=== PATIENT | female | born 1975 | race Caucasian/White ===

== ENCOUNTER 2021-01-28 17:27 | Emergency (ER) | payer OTHER, SELFPAY ==
[2021-01-28 18:18] VITALS: BP 125/60; PULSE 87; RESP 18; TEMP 36.4; O2SAT 100
--- NOTE | 2021-01-28 18:46 | ED.FEMALEGU ---
HPI - Female Genitourinary General Chief complaint: Urogenital-Female Stated complaint: low back pain,frequent urination Source: patient and RN notes reviewed Limitations: no limitations History of Present Illness HPI Narrative: The patient, on minimal meds, presents with urinary symptoms. Patient states she has a 1/2-week recurrence of typical urinary frequency, urgency and dysuria?like prior UTIs several years ago. No fever, low back pain, hematuria, abdominal pain vaginal discharge-she declines STD testing. Symptoms are mild, most most with micturition. Related Data Home Medications Medication Instructions Recorded Confirmed levothyroxine 88 mcg PO DAILY 01/28/21 01/28/21 liothyronine 5 mcg PO DAILY 01/28/21 01/28/21 Allergies Allergy/AdvReac Type Severity Reaction Status Date / Time No Known Allergies Allergy Verified 01/28/21 18:26 Review of Systems Review of Systems: General/Constitutional: No weight loss,fever Eyes: N0: Redness,discharge Ears/Nose/Throat: No: Epistaxis,ear discharge Respiratory: Denies: Hemoptysis Gastrointestinal: No Vomiting, Bleeding-rectal Skin: No Lumps, eruption Neurologic: No Focal Weakness,Sz Hematologic: Denies: Petechiae/Purpura Psychiatric: No: Suicida ideationl All Other Systems: Reviewed and Negative PMFSH Comments At time of signature, agree with nursing past medical, surgical, social and family history. There is no relevant family history pertinent to the presenting complaint Exam Narrative: General Appearance: Well appearing, Conjunctiva clear Mouth/Throat: Normal appearing, Normal lips, Supple Respiratory: Airway patent, No respiratory distress Abdomen: Soft, Non-tender, No massess, No organomegaly (no rebound/ surgical signs), Hyperactive bowel sounds Musculoskeletal: Full ROM Skin: Warm, Dry Neurological: A&O x3, Normal affect Course Vital Signs Vital signs: Vital Signs Temperature 97.5 F L 01/28/21 18:18 Pulse Rate 87 01/28/21 18:18 Respiratory Rate 18 01/28/21 18:18 Blood Pressure 125/60 01/28/21 18:18 Pulse Oximetry 100 01/28/21 18:18 Temperature 97.5 F L 01/28/21 18:18 Pulse Rate 87 01/28/21 18:18 Respiratory Rate 18 01/28/21 18:18 Blood Pressure 125/60 01/28/21 18:18 Pulse Oximetry 100 01/28/21 18:18 MDM - Female Genitourinary Lab Data Labs: Urine Glucose Negative Reference Range: Negative Urine Bilirubin Negative Reference Range: Negative Urine Ketone Trace Reference Range: Negative Urine Specific Roslyn 1.025 Reference Range:1.001-1.035 Urine Blood Negative Reference Range: Negative * * Urine pH 5.5 Reference Range: 5.0-9.0 Urine Protein Negative Reference Range: Negative Urine Urobilinogen 0.2 Reference Range: 0.2-1.0 Urine Nitrate Negative Reference Range: Negative Urine Leukocyte Negative Reference Range: Negative Urine Color Yellow Reference Range: Yellow Urine Characteristics Clear Discharge Plan Discharge Clinical Impression: Urinary tract infection Qualifiers: Urinary tract infection type: acute cystitis Hematuria pre
== END 2021-01-28 18:54 | disposition home or self-care (01) ==
PROVIDERS: Emergency Provider Emergency Medicine; PCP Family Medicine
DX: N30.00 Acute cystitis without hematuria (principal)
CPT/HCPCS: 81003; 87086; 87088; 99213; G0463

== ENCOUNTER 2024-05-23 17:47 | Emergency (ER) | payer OTHER, SELFPAY ==
--- OUTSIDE RECORDS SUMMARY | 2024-05-23 17:49 | XMS_ITS | Encounter Summary ---
Author Organization [facility] Address [address] [place] [address] Care Team Providers Care Seed Production Field Supervisor Name Role Phone Shauna Brock MD Primary Care Provider [phone] Best Griffiths MD Unavailable [phone] Renuka Bishop MD Primary Care Provider [phone] Encounter Details Date Type Department Care Team (Late st Contact Info) Description 05/14/2019 MyCQellot Message Enc [facility] Family Medicine - [place] [address], [address] [place] [address] [place] [address] [place] [address] Question Social History Tobacco Use Types Packs/Day Years Used Date Smoking Tobacco: Never Smokeless Tobacco: Never Alcohol Use Standard Drinks/Week Comments No 0 (1 standard drink = 0.6 oz pur e alcohol) PHQ-2 Answer Date Recorded PHQ-2 Score 0 05/27/2018 Comments No Sex and Gender Information Value Date Recorded Sex Assigned at Not on file Legal Sex Female 7:05 PM CDT Gender Identity Not on file Sexual Orientation Not on file Occupation Industry Job Start Date Job End Date Not on file Not on file Not on file Not on file documented as of this encounter Functional Status * RETIRED Are you deaf or do you have serious difficulty hearing Answer Date of Assessment Author Status No 10/27/2017 9:36 AM CDT Activ e * RETIRED Are you blind or do you have serious difficulty seeing, even when wearing glasses? Answer Date of Assessment Author Status No 10/27/2017 9:36 AM CDT Activ e * Do you have serious difficulty walking or climbing stairs? Answer Date of Assessment Author Status No 10/27/2017 9:36 AM CDT [facility] Active * Do you have difficulty dressing or bathing? Answer Date of Assessment Author Status No 10/27/2017 9:36 AM CDT [facility]osp[facility] R N Active * Because of a physical, mental, or emotional condition, do you have difficulty doing errands alone such as visiting a doctor's office or shopping? Answer Date of Assessment Author Status No 10/27/2017 9:36 AM CDT [facility] N Active documented as of this encounter Mental Status * Because of a physical, mental, or emotional condition, do you have serious difficulty concentrating, remembering, or making decisions? Answer Entry Date Author Status No 10/27/2017 9:36 AM CDT [facility] N Active documented in this encounter Plan of Treatment Upcoming Encounters Date Type Department Care Team (Late st Contact Info) Description 07/30/2024 7:00 AM CDT Office Visit [facility] Family Medicine - [place] [address] [place] [phone] Renuka Bishop MD [address] [place] [address] 01/17/2025 10:45 AM THIRD MILLER Office Visit [facility], [address] [place], [place] [address] Morena Correa PA-C [facility] [address] [place], [place] [id number] Lorenza Hernandez MD [facility]. [address] [place], [place] [address] 02/21/2025 9:00 AM THIRD MILLER Office Visit [facility], [address] [place] [address] Anamaria Yu PA-C [address] [facility], [address] [place] [address] documented as of this encounter Visit Diagnoses Not on filedocumented in this encounter Care Teams Seed Production Field Supervisor Relationship Specialty Start Date End Date Shauna Brock MD PCP - General 03/30/16 08/28/22 Renuka Bishop MD [address] [place] [address] PCP - General FAMILY PRACTICE 08/29/22 Best Griffiths MD [facility]. [address] [place] [address] [place] It Portfolio Manager INTERVENTIONAL CARDIOLOGY 11/14/17 documented as of this encounter
--- OUTSIDE RECORDS SUMMARY | 2024-05-23 17:49 | XMS_ITS | Encounter Summary ---
Author Organization [facility] Address Formerly [facility] [place] [address] Care Team Providers Care Didactic Instructor Name Role Phone Shauna Brock MD Primary Care Provider [phone] Best Griffiths MD Unavailable [phone] Renuka Bishop MD Primary Care Provider [phone] Encounter Details Date Type Department Care Team (Late st Contact Info) Description 03/12/2019 MyChart Message Enc [facility] Family Medicine - [place] [address], [address] [place] [address] [place] [address] [place] [address] RE: Medication Questions Social History Tobacco Use Types Packs/Day Years [...] [facility] Family Medicine - [place] [address] [place] [phone] Renuka Bishop MD [address] [place] [address] 01/17/2025 10:45 AM AERONAUTICAL PRODUCTS SALES ENGINEER Office Visit [facility], [facility] [address] [place], [place] [address] Morena Correa PA-C [facility] [address] [place], [place] [address] Lorenza Hernandez MD [facility]. [address] [place], [place] [address] 02/21/2025 9:00 AM AERONAUTICAL PRODUCTS SALES ENGINEER Office Visit [facility], [address] [place], [place] [id number] Anamaria Yu PA-C [address] [facility], [address] [place], [place] [address] documented as of this encounter Visit Diagnoses Not on filedocumented in this encounter Care Teams Didactic Instructor Relationship Specialty Start Date End Date Shauna Brock MD PCP - General 03/30/16 08/28/22 Renuka Bishop MD [address] [place] [address] PCP - General FAMILY PRACTICE 08/29/22 Best Griffiths MD Three [facility]. [address] [place] [address] [place] Mailing Section Clerk INTERVENTIONAL CARDIOLOGY 11/14/17 documented as of this encounter
--- OUTSIDE RECORDS SUMMARY | 2024-05-23 17:49 | XMS_ITS | Encounter Summary ---
Author Organization [facility] Address [facility] [place] [address] Care Team Providers Care Truck Caterer Name Role Phone Shauna Brock MD Primary Care Provider [phone] Best Griffiths MD Unavailable [phone] Renuka Bishop MD Primary Care Provider [phone] Encounter Details Date Type Department Care Team (Late st Contact Info) Description 02/18/2022 [employer] Message Enc [facility] Family Medicine - [place] [address], [address] [place] [address] Adzuna, [facility] Provider Refill request Social History Tobacco Use Types Packs/Day Years Used Date Smoking Tobacco: Never Smokeless Tobacco: Never Comments:NA Alcohol Use Standard Drinks/Week Comments No 0 (1 standard drink = 0.6 oz pur e alcohol) PHQ-2 Answer Date Recorded PHQ-2 Score - If the patient scores above 3, please move on to questions 3-9 0 05/28/2021 Comments No Sex and Gender Information Value [...] Author Status No 10/27/2017 9:36 AM CDT [facility] Active * Because of a physical, mental, or emotional condition, do you have difficulty doing errands alone such as visiting a doctor's office or shopping? Answer Date of Assessment Author Status No 10/27/2017 9:36 AM CDT [facility] Active documented as of this encounter Mental [...] Description 07/30/2024 7:00 AM CDT Office Visit [facility] Family Medicine [facility] [address] [place] [phone] Renuka Bishop MD [address] [place] [address] 01/17/2025 10:45 AM ONYX CHIP TERRAZZO WORKER Office Visit [facility] [address] [place], [place] [address] Morena Correa PA-C [facility] [address] [place], [place] [address] Lorenza Hernandez MD [facility]. [facility] [address] [place] [address] 02/21/2025 9:00 AM ONYX CHIP TERRAZZO WORKER Office Visit [facility], [address] [place] [address] Anamaria Yu PA-C [address] [facility], [address] [place] [address] documented as of this encounter Visit Diagnoses Not on filedocumented in this encounter Additional Health Concerns Assessment Noted Time PHQ-9 Depression Total Score: 0 05/29/19 22 12:27 PM CDT documented as of this encounter Care Teams Truck Caterer Relationship Specialty Start Date End Date Shauna Brock MD PCP - General 03/30/16 08/28/22 Renuka Bishop MD [address] [place] [address] PCP - General FAMILY PRACTICE 08/29/22 Best Griffiths MD Three [facility]. [address] [place] [address] [place] Online Marketing Coordinator INTERVENTIONAL CARDIOLOGY 11/14/17 documented as of this encounter
--- OUTSIDE RECORDS SUMMARY | 2024-05-23 17:49 | XMS_ITS | Clinical Summary ---
Author Organization [facility] Address [address] [place] [address] Care Team Providers Care Noise Tester Name Role Phone Best Griffiths MD Unavailable [phone] Renuka Bishop MD Primary Care Provider [phone] Allergies No known active allergies Medications levonorgestrel (MIRENA) 20 MCG/24HR IUD 1 Intra Uterine Device (20 mcg total) by Intrauterine route once. Active cetirizine 10 MG tablet Take 1 tablet (10 mg total) by mouth daily. Active multivitamin tablet Take 1 tablet by mouth daily. Active vitamin D3 (CHOLECALCIFEROL) 125 mcg Tab Take 2 tablets (10,000 Units total) by mouth daily. 06/21/19 19 Active liothyronine 5 MCG Tab 06/11/19 21 Active nitroglycerin (NITROSTAT) 0.[address] 1 tablet (0.4 mg total) under the tongue every 5 (five) minutes as needed for Chest Pain. 25 tablet 1 09/30/19 22 Active levothyroxine (SYNTHROID) 88 MCG tabletIndications:Hy pothyroidism, unspecified type TAKE 1 TABLET(88 MCG) BY MOUTH EVERY MORNING 30 tablet 02/19/20 22 Active metoprolol tartrate (LOPRESSOR) 50 MG tabletIndications:PS VT (paroxysmal supraventricular tachycardia) (HHS/HCC) TAKE 1 TABLET (50 MG) DAILY NEEDED . 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 Pain and swelling of right wrist 11/02/2017 Spontaneous dissection of coronary artery 2017 NSTEMI (non-ST elevation [place] cardial infarction) ([facility]) 10/25/2017 NSTEMI (non-ST elevated myoc ardial infarction) ([facility]) 10/25/2017 Elevated TSH 05/28/2015 Bacterial vaginosis 04/21/2015 Abnormal weight gain 04/14/2015 Changing skin lesion 04/14/2015 Immunizations Name Administration Dates Next Due Fluzone (IIV3, Trivalent, 0.5 ML Prefilled Syrin ge) 01/26/2024 Fluzone 6 Months+ Quad (0.5 mL Prefilled Syringe ) 01/22/2020 PFIZER COVID-19 (12+) MRNA, LNP-S, PF, JACE-SUCROSE, 30 MCG/0.3 ML (COMIRNATY) 01/26/2024 Tdap (Adacel) 02/12/2020 Family History Medical History Relation Comments skin cancer Brother 1 Cancer Brother 2 Melanoma - passe d 12/18/2017 Retardation/Learning Difficulties Daughter Arthritis Mother Hypertension Mother Relation Status Comments Brother 1 Brother 2 Daughter Father Alive Mother Alive Social History Tobacco Use Types Packs/Day Years Used Date Smoking Tobacco: Never Smokeless Tobacco: Never Tobacco Cessation:Counseling Given: Not Answered Comments:NA Alcohol Use Standard Drinks/Week Comments No 0 (1 standard drink = 0.6 oz pur e alcohol) PHQ-2 Answer Date Recorded Patient Health Questionnaire-2 Score 0 01/06/2023 Comments No Sex and Gender Information Value Date Recorded Sex Assigned at Not on file Legal Sex Female 7:05 PM CDT Gender Identity Not on file Sexual Orientation Not on file Occupation Industry Job Start Date Job End Date Not on file Not on file Not on file Not on file Last Filed Vital Signs Vital Sign Reading Time Taken Comments Blood Pressure 133/75 01/26/2024 11:47 AM FAST FOOD COOK Pulse 74 01/26/2024 11:47 AM FAST FOOD COOK Temperature 36.9 C (98.5 F) 01/26/2024 11:47 AM FAST FOOD COOK Respiratory Rate 16 01/26/2024 11:47 AM FAST FOOD COOK Oxygen Saturation 100% 01/26/2024 11:47 AM FAST FOOD COOK Inhaled Oxygen Concentration - - Weight 94 kg (207 lb 3.2 oz) 01/26/2024 11:47 AM FAST FOOD COOK Height 175.3 cm (5' 9 ) 01/26/2024 11:47 AM FAST FOOD COOK Body Mass Index 30.6 01/26/2024 11:47 AM FAST FOOD COOK Plan of Treatment Upcoming Encounters Date Type Department Care Team (Late st Contact Info) Description 07/30/2024 7:00 AM CDT Office Visit [facility] Family Medicine - [place] [address] [place] [phone] Renuka Bishop MD [address] [place] [address] 01/17/2025 10:45 AM FAST FOOD COOK Office Visit [facility], [facility] [address] [place], [place] [phone] Morena Correa PA-C [facility] [address], [place] [phone] Lorenza Hernandez MD [facility]. [facility] [address] [place], [place] [address] 02/21/2025 9:00 AM FAST FOOD COOK Office Visit [facility], [facility] [address] [place], [place] [phone] Anamaria Yu PA-C [address] [facility], [address] [place], [place] [phone] Health Maintenance Due Date Last Done Comments ASCVD Statin 1975 Pneumococcal Vaccine: Pediatrics (0 to 5 Years) and At-Risk Patients (6 to 64 Years) (1 of 2 - PCV) 11/26/1983 Hepatitis B Vaccines (1 of 3 - 19+ 3-dose series) 1996 PHQ-2 (Physician [place]) 02/28/2024 01/06/2023 Annual Physical 01/25/2025 01/26/2024, 12/28, 12/05/2022, Additional history exists Mammogram Screening 02/18/2025 02/18/2023, Colorectal Cancer Screening FIT-DNA (3 Years) 12/22/2025 12/22/2022, 12/22/2022 Cervical Cancer Screening Pap Smear (Age 30 to 64) Every 3 Years 04/17/2026 04/17/2023, 01/06/2023 Cervical Cancer Screening Pap with HPV Testing (Age 30 to 64) Every 5 Years 01/07/2028 01/06/2023, 04/14/2015 Cervical Cancer Screening with HPV 01/07/2028 DTaP, Tdap and Td Vaccines (2 - Td or Tdap) 02/11/2030 02/12/2020 COVID-19 Vaccine Completed 01/26/2024, 01/2021, 04/12/2020 Influenza Adult Completed 01/26/2024, 01/22/2020 Hepatitis C Completed 02/19/2024 Meningococcal B Vaccine Aged Out No l onger eligible based on patient's age to complete this topic Meningococcal Vaccine Aged Out No lupillo nadeem eligible based on patient's age to complete this topic RSV Immunizations Under 20 Months Aged Out No longer eligible based on patient's age to complete this topic Procedures Procedure Name Priority Date/Time Associated Diagnosis Comments HEPATITIS C ANTIBODY Routine 02/19/2024 6:34 AM FAST FOOD COOK Encounter for hepatitis C screening test for low risk patient MG SCREENING W TELMA KARL DIGI Routine 02/18/2023 1:57 PM FAST FOOD COOK Screening mammogram, encounter for HUMAN PAPILLOMAVIRUS, HIGH-RISK TYPES Routine 01/06/2023 12:00 PM FAST FOOD COOK CYTOPATH CERV/VAG THIN LAYER Routine 01/06/2023 12:00 AM FAST FOOD COOK COLOGUARD (EXACT SCIENCE) Routine 12/22/2022 1:15 PM CDT Colon cancer screening from Last 3 Months or Most Recently Relevant to Health Maintenance Results * HEPATITIS C ANTIBODY (02/19/2024 6:34 AM FAST FOOD COOK) HEPATITIS C AB NON-REACTI VE NON-REACTI VE 02/19/2024 8:22 AM FAST FOOD COOK [facility] 02/19/2024 6:34 AM FAST FOOD COOK Renuka Bishop MD LABORATORY Final Result [facility] [address] [place] [address], [place] [phone] * MG SCREENING W TELMA KARL DIGI (02/18/2023 1:57 PM FAST FOOD COOK) Anatomical Region Laterality Modality Breast Bilateral Mammography 02/21/2023 9:11 AM FAST FOOD COOK Narrative 02/21/2023 9:12 AM FAST FOOD COOK Examination: Screening bilateral mammogram Exam Date/Time: 02/18/2023 1:43 PM Clinical history: No current complaints. Comparison: 02/20/2020 Technique: Digital screening mammography of both breasts was performed. Breast tomosynthesis acquisitions were obtained and reviewed. This study was read with the assistance of a computer-aided detection system. Tissue density: There are scattered areas of fibroglandular density. Findings: No suspicious masses, malignant appearing calcifications, skin thickening or other abnormalities are present. No significant change from the prior exam. IMPRESSION: No suspicious mammographic findings. Recommendation: 1. Routine Screening, Bilateral Assessment: ACR BI-RADS 2 - BENIGN FINDING(S) Ordered By: RENUKA BISHOP Interpreted By: Lucas Washington, 02/21/2023 9:11 AM us Renuka Bishop MD MAMMO Final Result * HUMAN PAPILLOMAVIRUS, HIGH-RISK TYPES (01/06/2023 12:00 PM FAST FOOD COOK) SPEC DESCRIPTION CERVIX 01/10/20 8:22 AM FAST FOOD COOK [facility] HPV DNA HIGH RISK NEGATIVE NEGATIVE 01/10/2023 1:42 AM FAST FOOD COOK [facility] Comment:SEE CYTOLOGY REPORT 01/06/2023 12:0 0 PM FAST FOOD COOK us Renuka Bishop MD PATHOLOGY/CYTOLOGY ORDERABLES Fi nal Result [facility] [address] [place] [address], * Cytopath Cerv/Vag Thin Layer (01/06/2023 12:00 AM FAST FOOD COOK) THIN PREP PAP [facility] [address] [place] [address] Department of Pathology Pathology Report CERVICAL/VAGINAL PAP SMEAR REPORT Name: DEACON SANDERS Age: 9 1975 (Age: 47) Location: [facility] Sex: F Collected Date: 01/06/2023 [facility] #: [id number] Date Received: 01/09/2023 Date Reported: 01/12/2023 Provider: RENUKA BISHOP MD INTERPRETATION ABNORMAL RESULT CERVICAL/ENDOCERVI KEVYN: SATISFACTORY FOR EVALUATION. ENDOCERVICAL/TRANS FORMATION ZONE COMPONENT PRESENT. ATYPICAL ENDOCERVICAL CELLS. NEGATIVE FOR HIGH RISK HPV. The FDA approved Aptima HPV assay is an in vitro nucleic acid amplification test for the qualitative detection of E6/E7 viral messenger RNA (mRNA) from 14 high-risk types of human papillomavirus (HPV) in cervical specimens. The high-risk HPV types detected by the assay include: 16,18,31,33,35,39, 45,51,52,56,58,59, 66, and 68. Electronically Signed Out Charlotte Bullard M.D. Emilia Lopez, BRAYAN (ASCP) CLINICAL HISTORY Z01.419 SCREENING PAP ThinPrep Pap Test with HR HPV testing in patient > 30 years requested. Date of Last Menstrual Period: REMORE Menstrual Status: Regular Contraceptive History: IUD: MIRENA SPECIMEN SUBMITTED CERVICAL/ENDOCERVI KEVYN Specimen Received:1 Thin Prep Vial, Image Assisted Pap (SMD) Please note: The Pap smear is not a diagnostic test. It is a screening test. Negative results on combined screening (Pap test and HPV-DNA) have a high negative predictive value (99.1-100 percent) for cervical cancer. The pap test is not effective in detecting cervical adenocarcinoma. [facility] 01/06/2023 01/09/2023 7:1 8 AM FAST FOOD COOK Comment:CERVICAL/ENDOCERVICA L Renuka Bishop MD PATHOLOGY/CYTOLOGY ORDERABLES Fi nal Result [facility] [address] [place] [address], * COLOGUARD (EXACT SCIENCE) (12/22/2022 1:15 PM CDT) COLOGUARD RESULT Negative Negative [facility] [facility] (CLIA #:[id number]) Comment: NEGATIVE TEST RESULT. A negative Cologuard result indicates a low likelihood that a colorectal cancer (CRC) or advanced adenoma (adenomatous polyps with more advanced pre-malignant features) is present. The chance that a person with a negative Cologuard test has a colorectal cancer is less than 1 in 1500 (negative predictive value >99.9%) or has an advanced adenoma is less than 5.3% (negative predictive value 94.7%). These data are based on a prospective cross-sectional study of 10,000 individuals at average risk for colorectal cancer who were screened with both Cologuard and colonoscopy. (Toro Winter al, N Engl J Med 2014;370(14):3821-4902) The normal value (reference range) for this assay is negative. COLOGUARD RE-SCREENING RECOMMENDATION: Periodic colorectal cancer screening is an important part of preventive healthcare for asymptomatic individuals at average risk for colorectal cancer. Following a negative Cologuard result, the [place] Cancer Society and U.S. Multi-Society Task Force screening guidelines recommend a Cologuard re-screening interval of 3 years. References: [place] [employer] Guideline for Colorectal Cancer Screening: https://www.cancer.org/cancer/vuwrm-zmiamb-vwjiqb/ccxwohlrc-qavoptzuz-afknlva/ac s-rec ommendations.html.; Lon DK, Luciano CR, Gayathri WashingtonK, Colorectal Cancer Screening: Recommendations for Physicians and Patients from the U.S. Multi-Society Task Force on Colorectal Cancer Screening , Am J Gastroenterology 2017; 112:9298-7538. TEST DESCRIPTION: Composite algorithmic analysis of stool DNA-biomarkers with hemoglobin immunoassay. Quantitative values of individual biomarkers are not reportable and are not associated with individual biomarker result reference ranges. Cologuard is intended for colorectal cancer screening of adults of either sex, 45 years or older, who are at average-risk for colorectal cancer (CRC). Cologuard has been approved for use by the U.S. FDA. The performance of Cologuard was established in a cross sectional study of average-risk adults aged 50-84. Cologuard performance in patients ages 45 to 49 years was estimated by sub-group analysis of near-age groups. Colonoscopies performed for a positive result may find as the most clinically significant lesion: colorectal cancer [4.0%], advanced adenoma (including sessile serrated polyps greater than or equal to 1cm diameter) [20%] or non- advanced adenoma [31%]; or no colorectal neoplasia [45%]. These estimates are derived from a prospective cross-sectional screening study of 10,000 individuals at average risk for colorectal cancer who were screened with both Cologuard and colonoscopy. (Toro Winter al, N Engl J Med 2014;370(14):9844-3613.) Cologuard may produce a false negative or false positive result (no colorectal cancer or precancerous polyp present at colonoscopy follow up). A negative Cologuard test result does not guarantee the absence of CRC or advanced adenoma (pre-cancer). The current Cologuard screening interval is every 3 years. ([place] [employer] Society and U.S. Multi-Society Task Force). Cologuard performance data in a 10,000 patient pivotal study using colonoscopy as the reference method can be accessed at the following location: www.Spotwish/results. Additional description of the Cologuard test process, warnings and precautions can be found at www.cologuard.com. STOOL STOOL SPECIMEN / Unknown 12/22/2022 1:15 PM CDT 12/23/2022 4:04 PM CDT us Renuka Bishop MD BODY FLUIDS AND STOOLS ORDERABLE S Final Result [employer] [address] [place] [address], [place] [phone] [employer] (CLIA #:[id number]) [address] [place] [id number] from Last 3 Months or Most Recently Relevant to Health Maintenance Insurance [facility] Advance Directives * Full Code (Latest Code Status on File) Date Activated Date Inactivated Comments 10/26/2017 9:32 AM 10/27/2017 1:39 PM * Full Code Date Activated Date Inactivated Comments 10/25/2017 2:03 PM 10/26/2017 9:32 AM Care Teams Noise Tester Relationship Specialty Start Date End Date Renuka Bishop MD [address] [place] [address] PCP - General FAMILY PRACTICE 08/29/22 Best Griffiths MD [facility] [address] [place] [address] [place] Senior Etl Developer INTERVENTIONAL CARDIOLOGY 11/14/17
--- OUTSIDE RECORDS SUMMARY | 2024-05-23 17:49 | XMS_ITS | Encounter Summary ---
Author Organization [facility] Address [address] [place] [address] Care Team Providers Care Comic Book Artist Name Role Phone Best Griffiths MD Unavailable [phone] Renuka Bishop MD Primary Care Provider Encounter Details Date Type Department Care Team (Late st Contact Info) Description 09/22/2023 Greenhouse Apps Message Enc [facility] Family Medicine [facility] [address] [place] [address] Renuka Bishop MD [address] [place] [address] Referral Letter Social History Tobacco Use Types Packs/Day Years [...] AM CDT [facility] Active * Do you have difficulty dressing or bathing? Answer Date of Assessment Author Status No 10/27/2017 9:36 AM CDT [facility] Active * Because of a physical, mental, or emotional condition, do you have difficulty doing errands alone such as visiting a doctor's office or shopping? Answer Date of Assessment Author Status No 10/27/2017 9:36 AM CDT [facility] Active documented as of this encounter Mental Status * Because of a physical, mental, or emotional condition, do you have serious difficulty concentrating, remembering, or making decisions? Answer Entry Date Author Status No 10/27/2017 9:36 AM CDT [facility] Active documented in this encounter Plan of Treatment Upcoming Encounters Date Type Department Care Team (Late st Contact Info) Description 07/30/2024 7:00 AM CDT Office Visit [facility] Family Medicine [facility] [address] [place] [address] Renuka Bishop MD [address] [place] [address] 01/17/2025 10:45 AM BINDER STRIPPER HAND Office Visit [place] [facility], [facility] [address] [place] [address] Morena Correa PA-C [facility] [address] [place] [address] Lorenza Hernandez MD [facility]. [facility] [address] [place] [address] 02/21/2025 9:00 AM BINDER STRIPPER HAND Office Visit [place] [facility], [facility] [address] [place] [address] Anamaria Yu PA-C [address] [facility], [address] [place] [address] documented as of this encounter Visit Diagnoses Not on filedocumented in this encounter Additional Health Concerns Assessment Noted Time PHQ-9 Depression Total Score: 0 05/29/19 22 12:27 PM CDT documented as of this encounter Care Teams Comic Book Artist Relationship Specialty Start Date End Date Renuka Bishop MD [address] [place] [address] PCP - General FAMILY PRACTICE 08/29/22 Best Griffiths MD [facility]. [facility] [address] [place] [address] [place] Retirement Manager INTERVENTIONAL CARDIOLOGY 11/14/17 documented as of this encounter
--- OUTSIDE RECORDS SUMMARY | 2024-05-23 17:49 | XMS_ITS | Encounter Summary ---
Author Organization [facility] Address [address] [place] [address] Care Team Providers Care Screw Machine Set Up Operator Tool Name Role Phone Best Griffiths MD Unavailable [phone] Renuka Bishop MD Primary Care Provider [phone] Encounter Details Date Type Department Care Team (Late st Contact Info) Description 04/01/2023 [employer] Message Enc [facility] Family Medicine [facility] [address] [place] [address] Renuka Bishop MD [address] [place] [address] Referral Social History Tobacco Use Types Packs/Day Years [...] Description 07/30/2024 7:00 AM CDT Office Visit [facility] Family Medicine [facility] [address] [place] [address] Renuka iBshop MD [address] [place] [address] 01/17/2025 10:45 AM WIRE BRUSH MAKER Office Visit [place] [facility], [facility] [address] [place] [address] Morena Correa PA-C [facility] [address] [place] [address] Lorenza Hernandez MD [facility]. [facility] [address] [place] [address] 02/21/2025 9:00 AM WIRE BRUSH MAKER Office Visit [facility], [facility] [address] [place] [address] Anamaria Yu PA-C 3 [facility], [address] [place] [address] documented as of this encounter Visit Diagnoses Not on filedocumented in this encounter Additional Health Concerns Assessment Noted Time PHQ-9 Depression Total Score: 0 05/29/19 22 12:27 PM CDT documented as of this encounter Care Teams Screw Machine Set Up Operator Tool Relationship Specialty Start Date End Date Renuka Bishop MD [address] [place] [address] PCP - General FAMILY PRACTICE 08/29/22 Best Griffiths MD Three [facility]. [facility] [address] [place] [address] [place] Paper Mill Manager INTERVENTIONAL CARDIOLOGY 11/14/17 documented as of this encounter
--- OUTSIDE RECORDS SUMMARY | 2024-05-23 17:49 | XMS_ITS | Encounter Summary ---
Author Organization [facility] Address [address] [place] [address] Care Team Providers Care Wash Barrel Leader Name Role Phone Shauna Brock MD Primary Care Provider [phone] Best Griffiths MD Unavailable [phone] Renuka Bishop MD Primary Care Provider Encounter Details Date Type Department Care Team (Late st Contact Info) Description 12/12/2018 IntellinXt Message Enc [facility] Family Medicine - [place] [address] [facility], [address] [place] [address] [place] [address] [address] Medication Questions Social History Tobacco Use Types [...] [facility] Family Medicine - [place] [address] [place] [phone] Renuka Bishop MD [address] [place] [address] 01/17/2025 10:45 AM VP PRODUCTION Office Visit [place] [facility], [facility] [address] [place] [address] Morena Correa PA-C [facility] [address] [place], [place] [phone] Lorenza Hernandez MD [facility]. [facility] [address] [place], [place] [address] 02/21/2025 9:00 AM VP PRODUCTION Office Visit [facility], [facility] [address] [place] [address] Anamaria Yu PA-C [address] [facility], [address] [place] [address] documented as of this encounter Visit Diagnoses Not on filedocumented in this encounter Care Teams Wash Barrel Leader Relationship Specialty Start Date End Date Shauna Brock MD PCP - General 03/30/16 08/28/22 Renuka Bishop MD [address] [place] [address] PCP - General FAMILY PRACTICE 08/29/22 Best Griffiths MD Three [facility]. [facility] [address] [place] [address] [place] Apple Picking Supervisor INTERVENTIONAL CARDIOLOGY 11/14/17 documented as of this encounter
--- OUTSIDE RECORDS SUMMARY | 2024-05-23 17:49 | XMS_ITS | Referral Summary ---
Author Organization [address] Address [address] [place] [address] Care Team Providers Care Erp Programmer Name Role Phone Renuka Bishop MD Primary Care Provider Encounters Date Type Department Care Team Description 04/19/2024 2:15 PM SUPERVISOR SCREEN MAKING Office Visit [facility] Obstetrical Gynecology [address] [place] [address] [address] [place] [address] Nayeli Bassett CNM Well woman exam (Primary Dx) from Last 3 Months Allergies No known active allergies Medications cetirizine (ZyrTEC) 10 mg tablet Take 1 tablet (10 mg total) by mouth daily Active cholecalciferol (VITAMIN D-3) 5,000 unit tablet Take 2 tablets (10,000 Units total) by mouth daily 06/21/19 19 Active levonorgestreL (MIRENA) IUD 20 mcg by intrauterine route once 04/16/19 19 Active nitroglycerin (NITROSTAT) 0.[address] 1 tablet (0.4 mg total) under the tongue every 5 (five) minutes as needed 10/28/19 18 Active multivitamin tablet Take 1 tablet by mouth daily Active liothyronine (CYTOMEL) 5 mcg tablet Take 1 tablet (5 mcg total) by mouth daily 90 tablet 2 08/30/19 24 Active metoprolol tartrate (LOPRESSOR) 25 mg immediate release tablet Take 0.5 tablets (12.5 mg total) by mouth 2 (two) times a day 09/21/19 24 Active levothyroxine (SYNTHROID) 88 mcg tabletIndications: Acquired hypothyroidism Take 1 tablet (88 mcg total) by mouth warehouse and receiving supervisor before breakfast 90 tablet 3 12/11/19 24 025 Active Active Problems Problem Noted Date Diagnosed Date Hypothyroidism 03/17/2020 Assessment & Plan (12/11/2023 1:27 PM CDT): Chronic problem. +hypothyroid symptoms & TSH this morning upper limits of normal current levothyroxine 88mcg Monday-Monday & liothyronine 5mcg daily. Will increase levothyroxine to 88mcg daily. To repeat labs in 2 months. Verified that she uses [employer]. Aware to check results/results letter in [employer]. Will contact by phone if needed. Aware to take 1st thing in morning, 30-60 minutes before food/drink/other medications. Assessment & Plan (10/27/2022 1:39 PM CDT): Chronic, well controlled Update TFTs Continue combination therapy with levothyroxine and liothyronine. Assessment & Plan (10/26/2021 2:30 PM CDT): Thyroid function tests, including TSH and free T4 were requested Will adjust dose of Levothyroxine accordingly . If there is a need to make changes, will recheck levels in 2-3 months. Instructions to patient on taking medication properly : in the morning, on an empty stomach , 1 h part from food and/or other meds. Assessment & Plan (07/30/2020 2:47 PM CDT): Continue combination therapy with T4 and T3 F/u in a year Assessment & Plan (03/17/2020 4:41 PM SUPERVISOR SCREEN MAKING): Your goal of treatment is to keep TSH , T3 and T4 within normal range. Options of treatment, include LT 4 ( levothyroxine ) ,combination LT 4 plus T3 ( Levothyroxine + Liothyronine ) and natural hormonal preparations, including [place], Westhroid, etc. Well conducted clinical studies have not shown any difference in outcomes, in terms of symptoms when comparing these different options. Some patients tsking one or other form of treatment still manifest a variety of symptoms, in spite of normal thyroid hormone levels. At an individual levels, some patient feel better with some specific preparation, including [place]. However, many symptoms persist in patient, regardless of the form of treatment. Adjustments can always be made to the dose and the kind of preparation to use, as long as thyroid levels are within within range. Bringing the thyroid levels to supraphysiologic doses ( above normal ) is strongly recommended against , due to the high risk of side effects, including cardiac dysrhythmias ( irregular heart beat ) and bone density loss . I have recommended to start T3, with Cytomel 5 mcg Daily Will lower levothyroxine to 88 mcg daily not to take any on Sundays Will follow-up in 4 months Social History Tobacco Use Types Packs/Day Years Used Date Smoking Tobacco: Never Smokeless Tobacco: Never Alcohol Use Standard Drinks/Week Comments Not Currently 0 (1 standard drink = 0.6 oz pur e alcohol) PHQ-2 Answer Date Recorded PHQ-2 Total Score (If total score is 3 or more points, staff should administer the PHQ-9) 0 10/26/2021 Comments No Sex and Gender Information Value Date Recorded Sex Assigned at Not on file Legal Sex Female 2:37 PM SUPERVISOR SCREEN MAKING Gender Identity Female 03/13/2020 9:39 AM SUPERVISOR SCREEN MAKING Sexual Orientation Not on file Last Filed Vital Signs Vital Sign Reading Time Taken Comments Blood Pressure 116/70 04/19/2024 2:07 PM SUPERVISOR SCREEN MAKING Pulse 94 12/11/2023 1:00 PM CDT Temperature - - Respiratory Rate 16 12/11/2023 1:00 PM CDT Oxygen Saturation - - Inhaled Oxygen Concentration - - Weight 96.6 kg (213 lb) 04/19/2024 2:07 PM SUPERVISOR SCREEN MAKING Height 175.3 cm (5' 9.02 ) 04/19/2024 2:07 PM CS T Body Mass Index 31.44 04/19/2024 2:07 PM SUPERVISOR SCREEN MAKING Plan of Treatment Not on file Procedures Procedure Name Priority Date/Time Associated Diagnosis Comments HIGH RISK HPV DNA DETECTION WITH GENOTYPING Routine 04/17/2023 2:14 PM SUPERVISOR SCREEN MAKING Abnormal cervical Papanicolaou smear, unspecified abnormal pap finding from Last 3 Months or Most Recently Relevant to Health Maintenance Results * High Risk HPV DNA Detection with Genotyping (Molecular component) (04/17/2023 2:14 PM SUPERVISOR SCREEN MAKING) HPV HR 16 Not Detected Not Detected CATHERINE PATEL Comment:Testing performed by : [facility], [address] [place]., [address] HPV HR 18 Not Detected Not Detected CATHERINE PATEL Comment:Testing performed by : [facility], [address] [place]., [address] HPV HR Non 16/18 Not Detected Not Detected CATHERINE PATEL Comment: Interpretive Data Nucleic acid amplification for detection of high-risk Human Papilloma virus (HPV) is performed by the Duyen Santy 6800 HPV test. This assay specifically detects HPV-16 and HPV-18 genotypes. The following HPV genotypes are detected as high-risk HPV: HPV-31, 33, 35, ,39, 45, 51, 52, 56, 58, 59, 66, and 68. This assay has been approved by the [place] Food and Drug Administration for detection of HPV in cervical specimens collected by a physician using an endocervical brush/spatula or cervical broom and placed in the ThinPrep Pap Test PreservCyt collection containers. The performance characteristics of this test have been verified by the [facility] Molecular Infectious Disease laboratory. Correlate with separately reported cytology results, as applicable. Interpretive data last revised 22 Testing performed by: [facility], [address] [facility], [address] Endocervical 04/17/2023 2:14 PM SUPERVISOR SCREEN MAKING 04/18/2023 10:13 AM SUPERVISOR SCREEN MAKING Narrative CATHERINE - 04/19/2023 1:47 AM SUPERVISOR SCREEN MAKING Clinical history and diagnosis->LP. abnormal 12/2022 Number of vials->1 Testing type->Screening Last menstrual period (date if known)->IUD us Lynn Cornell MD LAB BODY FLUIDS AND STOOLS ORD ERABLES Final Result CATHERINE PATEL [address] [facility] Department [place] [address] from Last 3 Months or Most Recently Relevant to Health Maintenance Insurance [facility] CLAIMS [facility] Care Teams Erp Programmer Relationship Specialty Start Date End Date Renuka Bishop MD [address] [place] [address] PCP - General Family Medicine 04/19/24
--- OUTSIDE RECORDS SUMMARY | 2024-05-23 17:49 | XMS_ITS | Encounter Summary ---
Author Organization [facility] Address [address] [place] [address] Care Team Providers Care Binding Folder Machine Name Role Phone Best Griffiths MD Unavailable [phone] Renuka Bishop MD Primary Care Provider Encounter Details Date Type Department Care Team (Late st Contact Info) Description 09/15/2023 [employer] Message Enc [facility] Family Medicine [facility] [address] [place] [address] Renuka Bishop MD [address] [place] [address] Referral needed Social History Tobacco Use Types Packs/Day Years [...] Description 07/30/2024 7:00 AM CDT Office Visit [facility] Family Medicine [facility] [address] [place] [address] Renuka Bishop MD [address] [place] [address] 01/17/2025 10:45 AM HOP GROWER Office Visit [facility], [facility] [address] [place] [address] Morena Correa PA-C [facility] [address] [place] [address] Lorenza Hernandez MD [facility]. [facility] [address] [place] [address] 02/21/2025 9:00 AM HOP GROWER Office Visit [facility], [facility] [address] [place] [address] Anamaria uY PA-C [address] [facility], [address] [place] [address] documented as of this encounter Visit Diagnoses Not on filedocumented in this encounter Additional Health Concerns Assessment Noted Time PHQ-9 Depression Total Score: 0 05/29/19 22 12:27 PM CDT documented as of this encounter Care Teams Binding Folder Machine Relationship Specialty Start Date End Date Renuka Bishop MD [address] [place] [address] PCP - General FAMILY PRACTICE 08/29/22 Best Griffiths MD [facility]. [address] [place] [address] [place] [employer] INTERVENTIONAL CARDIOLOGY 11/14/17 documented as of this encounter
--- OUTSIDE RECORDS SUMMARY | 2024-05-23 17:49 | XMS_ITS | Clinical Summary ---
Author Organization [address] Address [address] [place] [address] Care Team Providers Care Continuous Washer Operator Name Role Phone Renuka Bishop MD Primary Care Provider Allergies No known active allergies Medications cetirizine [...] 1 tablet (88 mcg total) by mouth early morning babysitter before breakfast 90 tablet 3 12/11/19 24 025 Active Active Problems Problem Noted Date Diagnosed Date Hypothyroidism 03/17/2020 Assessment & Plan (12/11/2023 1:27 PM CDT): Chronic problem. +hypothyroid symptoms & TSH this morning upper limits of normal current levothyroxine 88mcg Monday-Monday & liothyronine 5mcg daily. Will increase levothyroxine to 88mcg daily. To repeat labs in 2 months. Verified that she uses [employer]. Aware to check results/results letter in [employer]. Will contact by phone if needed. Aware [...] year Assessment & Plan (03/17/2020 4:41 PM ISOLATION WASHER): Your goal of treatment is to keep TSH , T3 and T4 within normal range. Options of treatment, include LT 4 ( levothyroxine ) ,combination LT 4 plus T3 ( Levothyroxine + Liothyronine ) and natural hormonal preparations, including [place], Westhroid, etc. Well conducted clinical studies have not shown any difference in outcomes, in terms of symptoms when comparing these different options. Some patients tsking one or other form of treatment still manifest a variety of symptoms, in spite of normal thyroid hormone levels. At an individual levels, some patient feel better with some specific preparation, including [place]. However, many symptoms persist in patient, regardless [...] on Sundays Will follow-up in 4 months Encounters Date Type Department Care Team Description 04/19/2024 2:15 PM ISOLATION WASHER Office Visit [facility] Obstetrical Gynecology [facility] [facility] [address] [place] [address] Nayeli Bsasett CNM Well woman exam (Primary Dx) from Last 3 Months Surgical History Surgery Date Site/Laterality Comments ADENOIDECTOMY 02/28/1984 - 02/26/1985 Medical History Medical History Date Comments Hypothyroidism Family History Medical History Relation Name Comments Melanoma Brother Hypertension Mother Migraines Mother Breast cancer Neg Hx Colon cancer Neg Hx Ovarian cancer Neg Hx Pancreatic cancer Neg Hx Prostate cancer Neg Hx Uterine cancer Neg Hx Relation Name Status Comments Brother Mother Social History Tobacco Use Types Packs/Day Years [...] on file Legal Sex Female 2:37 PM ISOLATION WASHER Gender Identity Female 03/13/2020 9:39 AM ISOLATION WASHER Sexual Orientation Not on file Obstetrics History Para Term AB IAB SAB Ectopic Multiple Livin g Live Births 4 4 4 4 Date Outcome GA Total Labor Labor/2nd/3rd Weight Sex Type Anes PTL Francisca A1 A5 Name Clin Term Term Term Term Comments Menarche:14 First baby:27 Last Filed Vital Signs Vital Sign Reading Time Taken Comments Blood Pressure 116/70 04/19/2024 2:07 PM ISOLATION WASHER Pulse 94 12/11/2023 1:00 PM CDT Temperature - - Respiratory Rate 16 12/11/2023 1:00 PM CDT Oxygen Saturation - - Inhaled Oxygen Concentration - - Weight 96.6 kg (213 lb) 04/19/2024 2:07 PM ISOLATION WASHER Height 175.3 cm (5' 9.02 ) 04/19/2024 2:07 PM CS T Body Mass Index 31.44 04/19/2024 2:07 PM ISOLATION WASHER Plan of Treatment Health Maintenance Due Date Last Done Comments Colon Cancer Screening-Colonoscopy 1977 Hepatitis C Screening 1977 Hepatitis B Screening 11/26/1995 Depression Screening 10/26/2022 10/26/2021, 07/30/2020, 03/17/2020 Breast Cancer Screening-Mammogram 02/19/2024 02/18/2023, 02/18/2023, 02/20/2020 Cervical Cancer Screening 04/17/20242023, 04/17/2023, 01/06/2023 Regular Well Visit/Exam 18-64 04/19/2025, 04/17/2023 DTaP/Tdap/Td Vaccine (2 - Td or Tdap) 02/11/2030 02/12/2020 Influenza Vaccine Completed 01/26/2024, 01/22/2020 HPV Vaccines Aged Out No longer eligi ble based on patient's age to complete this topic Pneumococcal vaccine <65 Aged Out No longer eligible based on patient's age to complete this topic Procedures Procedure Name Priority Date/Time Associated Diagnosis Comments HIGH RISK HPV DNA DETECTION WITH GENOTYPING Routine 04/17/2023 2:14 PM ISOLATION WASHER Abnormal cervical Papanicolaou smear, unspecified abnormal pap finding from Last 3 Months or Most Recently Relevant to Health Maintenance Results * High Risk HPV DNA Detection with Genotyping (Molecular component) (04/17/2023 2:14 PM ISOLATION WASHER) HPV HR 16 Not Detected Not Detected CATHERINE PATEL Comment:Testing performed by : [facility], [address] [facility] [place]., [address] HPV HR 18 Not Detected Not Detected CATHERINE PATEL Comment:Testing performed by : [facility], [address] [facility] [place]., [address] HPV HR Non 16/18 Not Detected Not [...] this test have been verified by the [facility] Molecular Infectious Disease laboratory. Correlate with separately reported cytology results, as applicable. Interpretive data last revised 22 Testing performed by: [facility], [address] [facility] [place]., [address] Endocervical 04/17/2023 2:14 PM ISOLATION WASHER 04/18/2023 10:13 AM ISOLATION WASHER [facility] 04/19/2023 1:47 AM ISOLATION WASHER Clinical history and diagnosis->LP. abnormal 12/2022 Number of vials->1 Testing type->Screening Last menstrual period (date if known)->IUD Lynn Cornell MD LAB BODY FLUIDS AND STOOLS ORD ERABLES Final Result [facility] [address] [facility] Department [place] [address] from Last 3 Months or Most Recently Relevant to Health Maintenance Insurance [facility] CLAIMS [facility] Care Teams Continuous Washer Operator Relationship Specialty Start Date End Date Renuka Bishop MD [address] [place] [address] PCP - General Family Medicine 04/19/24
--- OUTSIDE RECORDS SUMMARY | 2024-05-23 17:49 | XMS_ITS | Encounter Summary ---
Author Organization [facility] Address [facility] [place] [address] Care Team Providers Care Cardiac Technologist Name Role Phone Shauna Brock MD Primary Care Provider [phone] Best Griffiths MD Unavailable [phone] Renuka Bishop MD Primary Care Provider [phone] Encounter Details Date Type Department Care Team (Late st Contact Info) Description 08/19/2020 [employer] Message Enc [facility] Family Medicine - [place] [address] [facility], [address] [place] [address] [place] [address] [place] [address] RE: Referral Request Social History Tobacco Use Types Packs/Day Years Used Date Smoking Tobacco: Never Smokeless Tobacco: Never Comments:NA Alcohol Use Standard Drinks/Week Comments No 0 (1 standard drink = 0.6 oz pur e alcohol) PHQ-2 Answer Date Recorded PHQ-2 Score - If the patient scores above 3, please move on to questions 3-9 0 07/31/2020 Comments No Sex and Gender Information Value Date Recorded Sex Assigned at Not on file Legal Sex Female 7:05 PM CDT Gender Identity Not on file Sexual Orientation Not on file Occupation Industry Job Start Date Job End Date Not on file Not on file Not on file Not on file COVID-19 Exposure Response Date Recorded In the last month, have you been in contact with someone who was confirmed or suspected to have Coronavirus / COVID-19? No / Unsure 07/31/2020 10:31 AM CDT documented as of this encounter Functional Status [...] Description 07/30/2024 7:00 AM CDT Office Visit [facility] Family Medicine - [place] [address] [place] [address] Renuka Bishop MD [address] [place] [address] 01/17/2025 10:45 AM CNC TECHNICIAN Office Visit [facility], [address] [place], [place] [id number] Morena Correa PA-C [facility] [address] [place], [place] [id number] Lorenza Hernandez MD [facility]. [address] [place], [place] [id number] 02/21/2025 9:00 AM CNC TECHNICIAN Office Visit [facility], [address] [place], [place] [phone] Anamaria Yu PA-C [address] [facility], [address] [place], [place] [phone] documented as of this encounter Visit Diagnoses Not on filedocumented in this encounter Additional Health Concerns Assessment Noted Time PHQ-9 Depression Total Score: 0 08/01/19 21 10:50 AM CDT documented as of this encounter Care Teams Cardiac Technologist Relationship Specialty Start Date End Date Shauna Brock MD PCP - General 03/30/16 08/28/22 Renuka Bishop MD [address] [place] [address] PCP - General FAMILY PRACTICE 08/29/22 Best Griffiths MD [facility]. [address] [place], [place] [phone] [place] Cathode Builder INTERVENTIONAL CARDIOLOGY 11/14/17 documented as of this encounter
--- OUTSIDE RECORDS SUMMARY | 2024-05-23 17:49 | XMS_ITS | Encounter Summary ---
Author Organization [facility] Address [address] [place] [address] Care Team Providers Care Dish Room Worker Name Role Phone Shauna Brock MD Primary Care Provider Best Griffiths MD Unavailable [phone] Renuka Bishop MD Primary Care Provider [phone] Encounter Details Date Type Department Care Team (Late st Contact Info) Description 08/06/2019 MyChart Message Enc [facility] Family Medicine - [place] [address] [facility], [address] [place] [address] [place] [address] [place] [address] RE: Question Social History Tobacco Use Types Packs/Day [...] Description 07/30/2024 7:00 AM CDT Office Visit [facility] Family Medicine - [place] [address] [place] [phone] Renuka Bishop MD [address] [place] [address] 01/17/2025 10:45 AM FINANCE PROFESSOR Office Visit [facility], [facility] [address] [place] [address] Morena Correa PA-C [facility] [address] [place], [place] [address] Lorenza Hernandez MD [facility]. [address] [place], [place] [address] 02/21/2025 9:00 AM FINANCE PROFESSOR Office Visit [facility], [address] [place] [address] Anamaria Yu PA-C 3 [facility], [address] [place] [address] documented as of this encounter Visit Diagnoses Not on filedocumented in this encounter Care Teams Dish Room Worker Relationship Specialty Start Date End Date Shauna Brock MD PCP - General 03/30/16 08/28/22 Renuka Bishop MD [address] [place] [address] PCP - General FAMILY PRACTICE 08/29/22 Best Griffiths MD Three [facility]. [address] [place] [address] [place] Geographic Information Scientist INTERVENTIONAL CARDIOLOGY 11/14/17 documented as of this encounter
[2024-05-23 17:55] VITALS: BP 139/68; PULSE 76; RESP 18; TEMP 36.2; O2SAT 100
--- NOTE | 2024-05-23 18:00 | ED.URI ---
HPI - URI/Sore Throat General Chief Complaint: Upper Respiratory Infection Stated Complaint: sore throat Time Seen by Provider: 05/23/24 17:52 Source: patient and RN notes reviewed Mode of arrival: ambulatory Limitations: no limitations History of Present Illness HPI Narrative: 48-year-old female presents to the [facility] today complaining of a sore throat. She reports her symptoms started about 1 week ago where she thought she was having symptoms of laryngitis, having voice hoarseness. She had incident of voice hoarseness progress into a sore throat when she developed white patches on her tonsils and uvula. She also reports that her throat feels itchy and that she is also feeling itchiness in her ears. She denies any cough,, chest pain, shortness of breath, nausea, vomiting, diarrhea she has been doing timely ibuprofen as needed for pain with mild relief so doing and he has this, and nasal spray for symptom management as well. She is worried that she might have the white patches that developed on the back of her throat. She did state that her just returned from [place] and he had a head cold but reports feeling better does not have similar symptoms that she does. Related Data Home Medications ?Medication ?Instructions ?Recorded ?Confirmed ?Last Taken ?Type levonorgestrel (Mirena) 1 insert intrauterine ONCE 01/28/21 01/28/21 Unknown History levothyroxine 88 mcg tablet 88 mcg PO DAILY 01/28/21 01/28/21 Unknown History liothyronine 5 mcg tablet 5 mcg PO DAILY 01/28/21 01/28/21 Unknown History Allergies Allergy/AdvReac Type Severity Reaction Status Date / Time No Known Allergies Allergy Verified 05/23/24 17:58 Review of Systems Review of Systems: CONSTITUTIONAL: Denies fever, chills, or sweats. EYES: Denies visual changes, redness, or discharge. ENT: Denies rhinorrhea, congestion, otalgia. positive for sore throat, white patches on throat. positive for pruritus in ears and throat. CARDIOVASCULAR: Denies chest pain, palpitations, or edema. RESPIRATORY: Denies cough or dyspnea. GASTROINTESTINAL: Denies abdominal pain, nausea, vomiting, or diarrhea. GENITOURINARY: Denies dysuria or hematuria. SKIN: Denies rash or itching. MUSCULOSKELETAL: Denies back pain, joint pain, or myalgia. NEUROLOGIC: Denies headache, numbness, or weakness. PSYCHIATRIC: Denies anxiety or depression. All other systems reviewed are negative, except as documented in HPI. PMFSH Comments At the time of my signature, I reviewed and agree with the nursing past medical, surgical, social, and family history. There is no relevant family history pertinent to the patient complaint. Exam Narrative: GENERAL: This is a well-nourished, well-developed patient, in no apparent distress. she is non ill-appearing, nontoxic appearing. HEAD: normocephalic, atraumatic. EYES: Sclera clear/white. Vision is grossly intact. EARS: External ears normal, auditory canals clear and without drainage, TMs normal without perforation. Hearing grossly intact. NOSE: External nose normal with no obvious nasal discharge, nares without redness, no rhinorrhea. THROAT: Mucous membranes moist, posterior pharynx is erythematous with white patches present to the soft palate and uvula. Uvula is midline NECK: Neck supple, tender with mild lymphadenopathy, no or thyromegaly. CARDIOVASCULAR: Regular rate and rhythm without murmurs, gallops, or rubs. RESPIRATORY: Clear to auscultation. Breath sounds equal bilaterally. No wheezes, rales, or rhonchi. GASTROINTESTINAL: Abdomen soft, non-tender, nondistended. SKIN: warm, Dry, intact with no suspicious lesions or rash, good texture and turgor. NEURO: awake, alert, and oriented to person, place and time. There were no obvious focal neurologic abnormalities. EXTREMITIES: No joint tenderness, effusion, or edema noted. BACK: Nontender without deformity. Course Course Level of Care: Express Care Visit Vital Signs Vital signs: Vital Signs Temperature 97.2 F L 05/23/24 17:55 Pulse Rate 76 05/23/24 17:55 Respiratory Rate 18 05/23/24 17:55 Blood Pressure 139/68 05/23/24 17:55 Pulse Oximetry 100 05/23/24 17:55 Oxygen Delivery Room Air 05/23/24 17:55 Temperature 97.2 F L 05/23/24 17:55 Pulse Rate 76 05/23/24 17:55 Respiratory Rate 18 05/23/24 17:55 Blood Pressure 139/68 05/23/24 17:55 Pulse Oximetry 100 05/23/24 17:55 Oxygen Delivery Room Air 05/23/24 17:55 reviewed MDM - URI/Sore Throat MDM Narrative Medical decision making narrative: Rapid strep test was negative. Strep culture will be sent off. If culture is positive, patient will be contacted and prescribed antibiotics for appropriate treatment. Antibiotics will be deferred at this time unless there is a positive culture results. The white patches were present on her soft palate, no white patches present on the tonsils or throat. Her symptoms are more consistent with herpangina. However her Herpes cannot be excluded. A herpes viral culture has been obtained and sent off, we will treat her prophylactically with acyclovir. Patient is aware she will be contacted on the results of her cultures. Her COVID swab was negative. Differential Diagnosis Differential diagnosis: Likely other (herpes simplex, herpangina, strep pharyngitis, viral pharyngitis) Lab Data Attestation: I reviewed the patient's lab results. Critical Care Time Critical Care Time Critical Care Time: No Discharge Plan Discharge Clinical Impression: Pharyngitis Qualifiers: Pharyngitis/tonsillitis etiology: unspecified etiology Qualified Code(s): J02.9 - Acute pharyngitis, unspecified Patient Disposition: Home, Self-Care Condition: Stable Instructions: Antibiotic Form, Pharyngitis (ED) Additional Instructions: Rapid strep is negative in the office; however we will send to the lab for confirmation; there is a small percentage chance that it can come back positive; if it is, we will call you in 2-3days; and your prescription will be call in to your pharmacy. However, there is NO indication for antibiotic at this time. Your COVID test was negative. We have sent off a herpes viral culture. We will go ahead and prophylactically treat you with acyclovir, please take as directed. We will contact you when the herpes viral culture has resulted to let you know if it is negative or positive. Your symptoms are likely from the Coxsackievirus virus known as herpangina which is self-limiting and usually lasts up to 10 days. However we do not have any testing for that virus. You may do salt water gargle rinse as needed for throat discomfort. You may also take fixx-toe-vwtifye throat lozenges as needed for discomfort. Please take Tylenol ibuprofen as needed for pain. Follow-up with your primary care provider in 2-3. Please go to the ER if your symptoms worsen or you have any change in condition. Patient Language: Luxembourger Prescriptions: New acyclovir 400 mg tablet 400 mg PO TID 7 Days Qty: 21 0RF No Action liothyronine 5 mcg tablet 5 mcg PO DAILY levothyroxine 88 mcg tablet 88 mcg PO DAILY sulfamethoxazole-trimethoprim [Bactrim DS] 800-160 mg tablet 1 tablet PO Q12H 7 Days Qty: 14 0RF Mirena 20 mcg/24 hours (7 yrs) 52 mg Intrauterine Device 1 insert INTRAUTERINE ONCE Follow-up/Referrals: PHYSICIAN,[employer]ERAPIST [Primary Care Provider] - Time of Disposition: 18:40
[2024-05-23 18:32] LABS: EDSTREPNEGPOS1 Negative (Negative)
[2024-05-23 18:37] LABS: EDCOVIDSCREEN Negative (Negative)
== END 2024-05-23 18:47 | disposition home or self-care (01) ==
DX: J02.9 Acute pharyngitis, unspecified (principal); Z20.822 Contact with and (suspected) exposure to COVID-19; E03.9 Hypothyroidism, unspecified
CPT/HCPCS: 87081; 87140; 87255; 87426; 87880; 99213; G0463